=== PATIENT | female | born 1930 | race Caucasian/White ===

== ENCOUNTER 2016-05-05 20:57 | Inpatient (IN) | payer MEDICARE, BC ==
--- NOTE | 2016-05-05 21:38 | ED ---
Weakness HPI - General Chief complaint: Weakness Stated complaint: Blood in stool weakness Time Seen by Provider: 05/05/16 21:20 Source: patient, family, RN notes reviewed Mode of arrival: wheelchair Limitations: no limitations - History of Present Illness Initial comments: This is a 85-year-old female history of diverticulitis in the past no prior abdominal surgeries however who states she's had abdominal pain in the lower abdomen especially in the left side with some blood per rectum today. She states the pain is [id number] she's had diarrhea for about a week prior to this. She complains of generalized weakness some lightheadedness. No overt fevers chills or sweats. She states she does have a bladder suspension device at this time. She gets adjusted periodically. She denies any dysuria hematuria. No other symptoms reported at this time. No history of GI bleeding. MD Complaint: generalized weakness - Related Data Home Medications Medication Instructions Recorded Confirmed Aspirin 81 mg PO DAILY 06/07/14 05/05/16 Diltiazem HCl [Diltiazem ER] 240 mg PO DAILY 06/07/14 05/05/16 Allergies Allergy/AdvReac Type Severity Reaction Status Date / Time No Known Allergies Allergy Verified 05/05/16 21:03 Review of Systems ROS Statement: Those systems with pertinent positive or pertinent negative responses have been documented in the HPI. ROS Other: All systems not noted in ROS Statement are negative. Past Medical History Past Medical History: Hypertension Additional Past Medical History / Comment(s): diverticulitis History of Any Multi-Drug Resistant Organisms: None Reported Past Surgical History: Bladder Surgery, Tubal Ligation Additional Past Surgical History / Comment(s): rt cataract 06/08/14 Past Anesthesia/Blood Transfusion Reactions: No Reported Reaction Past Psychological History: No Psychological Hx Reported Smoking Status: Former smoker Past Alcohol Use History: None Reported Past Drug Use History: None Reported - Past Family History Sister(s) Family Medical History: Cancer General Exam - General Exam Comments Initial Comments: This is a well-developed well-nourished awake alert oriented 3 female Limitations: no limitations General appearance: alert, anxious Head exam: Present: atraumatic, normocephalic, normal inspection Eye exam: Present: normal appearance, PERRL, EOMI. Absent: scleral icterus, conjunctival injection, periorbital swelling ENT exam: Present: mucous membranes dry Neck exam: Present: normal inspection. Absent: tenderness, meningismus, lymphadenopathy Respiratory exam: Present: normal lung sounds bilaterally. Absent: respiratory distress, wheezes, rales, rhonchi, stridor Cardiovascular Exam: Present: regular rate, normal rhythm, normal heart sounds. Absent: systolic murmur, diastolic murmur, rubs, gallop, clicks GI/Abdominal exam: Present: soft, tenderness (Left lower quadrant tenderness palpation no guarding rebound masses or bruits), normal bowel sounds. Absent: distended, guarding, rebound, rigid Rectal exam: Present: heme (+) stool, other (No overt masses or tenderness there was pink mucus noted on the gloved fingertip.). Absent: hemorrhoids Extremities exam: Present: normal inspection, full ROM, normal capillary refill. Absent: tenderness, pedal edema, joint swelling, calf tenderness Back exam: Present: normal inspection Neurological exam: Present: alert, oriented X3, CN II-XII intact Psychiatric exam: Present: normal affect, normal mood Skin exam: Present: warm, dry, intact, normal color. Absent: rash Course Vital Signs 05/05/16 05/05/16 20:58 23:02 Temperature 98.2 F Pulse Rate 80 78 Respiratory 18 20 Rate Blood Pressure 143/63 136/60 O2 Sat by Pulse 94 L 97 Oximetry Medical Decision Making - Medical Decision Making I did discuss findings with patient family patient be admitted with GI consultation. - Lab Data Result diagrams: 05/05/16 21:25 05/05/16 21:25 Lab Results 05/05/16 05/05/16 05/05/16 Range/Units 21:25 21:25 21:25 WBC 8.0 (3.8-10.6) k/uL RBC 4.63 (3.80-5.40) m/uL Hgb 12.5 (11.4-16.0) gm/dL Hct 38.8 (34.0-46.0) % MCV 83.8 (80.0-100.0) fL MCH 27.0 (25.0-35.0) pg MCHC 32.2 (31.0-37.0) g/dL RDW 13.4 (11.5-15.5) % Plt Count 421 (150-450) k/uL Neutrophils % 74 % Lymphocytes % 15 % Monocytes % 7 % Eosinophils % 2 % Basophils % 0 % Neutrophils # 5.9 (1.3-7.7) k/uL Lymphocytes # 1.2 (1.0-4.8) k/uL Monocytes # 0.6 (0-1.0) k/uL Eosinophils # 0.2 (0-0.7) k/uL Basophils # 0.0 (0-0.2) k/uL Sodium 141 (137-145) mmol/L Potassium 4.2 (3.5-5.1) mmol/L Chloride 103 (98-107) mmol/L Carbon Dioxide 28 (22-30) mmol/L Anion Gap 10 mmol/L BUN 18 H (7-17) mg/dL Creatinine 0.50 L (0.52-1.04) mg/dL Est GFR (MDRD) Af Amer >60 (>60 ml/min/1.73 sqM) Est GFR (MDRD) Non-Af >60 (>60 ml/min/1.73 sqM) Glucose 109 H (74-99) mg/dL Plasma Lactic Acid Lobo (0.7-2.0) mmol/L Calcium 8.7 (8.4-10.2) mg/dL Total Bilirubin 0.3 (0.2-1.3) mg/dL AST 13 L (14-36) U/L ALT 24 (9-52) U/L Alkaline Phosphatase 109 (38-126) U/L Total Creatine Kinase 21 L (30-135) U/L CK-MB (CK-2) <0.2 (0.0-2.4) ng/mL CK-MB (CK-2) Rel Index Troponin I <0.012 (0.000-0.034) ng/mL Total Protein 6.7 (6.3-8.2) g/dL Albumin 3.2 L (3.5-5.0) g/dL Amylase <30 L (30-110) U/L Lipase 73 (23-300) U/L Urine Color Urine Appearance (Clear) Urine pH (5.0-8.0) Ur Specific Curtis (1.001-1.035) Urine Protein (Negative) Urine Glucose (UA) (Negative) Urine Ketones (Negative) Urine Blood (Negative) Urine Nitrate (Negative) Urine Bilirubin (Negative) Urine Urobilinogen (<2.0) mg/dL Ur Leukocyte Esterase (Negative) Urine RBC (0-5) /hpf Urine WBC (0-5) /hpf Urine WBC Clumps (None) /hpf Ur Squamous Epith Cells (0-4) /hpf Urine Bacteria (None) /hpf Urine Yeast (Budding) (None) /hpf Stool Occult Blood (Negative) Blood Type Blood Type Recheck Antibody Screen Spec Expiration Date 05/05/16 05/05/16 05/05/16 Range/Units 21:25 21:25 21:45 WBC (3.8-10.6) k/uL RBC (3.80-5.40) m/uL Hgb (11.4-16.0) gm/dL Hct (34.0-46.0) % MCV (80.0-100.0) fL MCH (25.0-35.0) pg MCHC (31.0-37.0) g/dL RDW (11.5-15.5) % Plt Count (150-450) k/uL Neutrophils % % Lymphocytes % % Monocytes % % Eosinophils % % Basophils % % Neutrophils # (1.3-7.7) k/uL Lymphocytes # (1.0-4.8) k/uL Monocytes # (0-1.0) k/uL Eosinophils # (0-0.7) k/uL Basophils # (0-0.2) k/uL Sodium (137-145) mmol/L Potassium (3.5-5.1) mmol/L Chloride (98-107) mmol/L Carbon Dioxide (22-30) mmol/L Anion Gap mmol/L BUN (7-17) mg/dL Creatinine (0.52-1.04) mg/dL Est GFR (MDRD) Af Amer (>60 ml/min/1.73 sqM) Est GFR (MDRD) Non-Af (>60 ml/min/1.73 sqM) Glucose (74-99) mg/dL Plasma Lactic Acid Lobo 1.2 (0.7-2.0) mmol/L Calcium (8.4-10.2) mg/dL Total Bilirubin (0.2-1.3) mg/dL AST (14-36) U/L ALT (9-52) U/L Alkaline Phosphatase (38-126) U/L Total Creatine Kinase (30-135) U/L CK-MB (CK-2) (0.0-2.4) ng/mL CK-MB (CK-2) Rel Index Troponin I (0.000-0.034) ng/mL Total Protein (6.3-8.2) g/dL Albumin (3.5-5.0) g/dL Amylase (30-110) U/L Lipase (23-300) U/L Urine Color Urine Appearance (Clear) Urine pH (5.0-8.0) Ur Specific Curtis (1.001-1.035) Urine Protein (Negative) Urine Glucose (UA) (Negative) Urine Ketones (Negative) Urine Blood (Negative) Urine Nitrate (Negative) Urine Bilirubin (Negative) Urine Urobilinogen (<2.0) mg/dL Ur Leukocyte Esterase (Negative) Urine RBC (0-5) /hpf Urine WBC (0-5) /hpf Urine WBC Clumps (None) /hpf Ur Squamous Epith Cells (0-4) /hpf Urine Bacteria (None) /hpf Urine Yeast (Budding) (None) /hpf Stool Occult Blood Positive H (Negative) Blood Type O Positive Blood Type Recheck No Antibody Screen NEGATIVE Spec Expiration Date 05/08/2016 - 232405/05/16 Range/Units 23:03 WBC (3.8-10.6) k/uL RBC (3.80-5.40) m/uL Hgb (11.4-16.0) gm/dL Hct (34.0-46.0) % MCV (80.0-100.0) fL MCH (25.0-35.0) pg MCHC (31.0-37.0) g/dL RDW (11.5-15.5) % Plt Count (150-450) k/uL Neutrophils % % Lymphocytes % % Monocytes % % Eosinophils % % Basophils % % Neutrophils # (1.3-7.7) k/uL Lymphocytes # (1.0-4.8) k/uL Monocytes # (0-1.0) k/uL Eosinophils # (0-0.7) k/uL Basophils # (0-0.2) k/uL Sodium (137-145) mmol/L Potassium (3.5-5.1) mmol/L Chloride (98-107) mmol/L Carbon Dioxide (22-30) mmol/L Anion Gap mmol/L BUN (7-17) mg/dL Creatinine (0.52-1.04) mg/dL Est GFR (MDRD) Af Amer (>60 ml/min/1.73 sqM) Est GFR (MDRD) Non-Af (>60 ml/min/1.73 sqM) Glucose (74-99) mg/dL Plasma Lactic Acid Lobo (0.7-2.0) mmol/L Calcium (8.4-10.2) mg/dL Total Bilirubin (0.2-1.3) mg/dL AST (14-36) U/L ALT (9-52) U/L Alkaline Phosphatase (38-126) U/L Total Creatine Kinase (30-135) U/L CK-MB (CK-2) (0.0-2.4) ng/mL CK-MB (CK-2) Rel Index Troponin I (0.000-0.034) ng/mL Total Protein (6.3-8.2) g/dL Albumin (3.5-5.0) g/dL Amylase (30-110) U/L Lipase (23-300) U/L Urine Color Light Yellow Urine Appearance Cloudy H (Clear) Urine pH 7.0 (5.0-8.0) Ur Specific Curtis 1.019 (1.001-1.035) Urine Protein 1+ H (Negative) Urine Glucose (UA) Negative (Negative) Urine Ketones Negative (Negative) Urine Blood Small H (Negative) Urine Nitrate Negative (Negative) Urine Bilirubin Negative (Negative) Urine Urobilinogen <2.0 (<2.0) mg/dL Ur Leukocyte Esterase Large H (Negative) Urine RBC 15 H (0-5) /hpf Urine WBC >182 H (0-5) /hpf Urine WBC Clumps Few H (None) /hpf Ur Squamous Epith Cells 4 (0-4) /hpf Urine Bacteria Occasional H (None) /hpf Urine Yeast (Budding) Moderate H (None) /hpf Stool Occult Blood (Negative) Blood Type Blood Type Recheck Antibody Screen Spec Expiration Date - Radiology Data Radiology results: report reviewed (I did review the imaging and reports no acute findings on the x-ray CAT scan shows evidence of colitis.), image reviewed Disposition Clinical Impression: Colitis, GI bleed, Abdominal pain Disposition: ADMITTED IP TO THIS HOSP Condition: Stable
[2016-05-05 22:01] LABS: ALT 24 U/L (9-52); AST 13 U/L (14-36); Alkaline Phosphatase 109 U/L (38-126); Amylase <30 U/L (30-110); Anion Gap 10 mmol/L; Blood Urea Nitrogen 18 mg/dL (7-17); Calcium 8.7 mg/dL (8.4-10.2); Carbon Dioxide 28 mmol/L (22-30); Chloride 103 mmol/L (98-107); Glucose 109 mg/dL (74-99); Non-African American GFR(MDRD) >60 (>60 ml/min/1.73 sqM); Potassium 4.2 mmol/L (3.5-5.1); Sodium 141 mmol/L (137-145); Total Bilirubin 0.3 mg/dL (0.2-1.3); Total Protein 6.7 g/dL (6.3-8.2)
--- NOTE | 2016-05-05 22:04 | XR ---
EXAMINATION TYPE: XR KUB DATE OF EXAM: 05/05/2016 9:51 PM COMPARISON: NONE HISTORY: Abdominal pain TECHNIQUE: Single view FINDINGS: Bowel gas pattern is normal. There is no sign of intestinal obstruction or pneumoperitoneum . Fecal pattern is normal. There is a ring over the pelvis that is probably a pessary. There are no p athologic calcifications over the kidneys. Bony structures are intact. IMPRESSION: Nonacute abdomen.
[2016-05-05 22:10] LABS: Creatine Kinase 21 U/L (30-135)
[2016-05-05 22:23] LABS: Creatine Kinase MB <0.2 ng/mL (0.0-2.4); Troponin I <0.012 ng/mL (0.000-0.034)
[2016-05-05 22:27] LABS: Basophils % (A) 0 %; CH 26.9; CHCM 32.2; Eosinophils # (A) 0.2 k/uL (0-0.7); Eosinophils % (A) 2 %; HCT 38.8 % (34.0-46.0); HDW 2.71; HGB 12.5 gm/dL (11.4-16.0); Luc # (Auto) 0.14; Luc % (Auto) 2; Lymphocytes # (A) 1.2 k/uL (1.0-4.8); Lymphocytes % (A) 15 %; MCHC 32.2 g/dL (31.0-37.0); MCV 83.8 fL (80.0-100.0); Mean Platelet Volume 6.6; Monocytes # (A) 0.6 k/uL (0-1.0); Monocytes % (A) 7 %; Neutrophils # (A) 5.9 k/uL (1.3-7.7); Neutrophils % (A) 74 %; RBC 4.63 m/uL (3.80-5.40); RDW 13.4 % (11.5-15.5); WBC (Perox) 8.54
[2016-05-05] MEDS ORDERED: RX INFO: IV CONTRAST WAS GIVEN 1 EACH MISC MISCELLANE PRN (22:33)
--- NOTE | 2016-05-05 23:30 | CT ---
EXAMINATION TYPE: CT abdomen pelvis w con DATE OF EXAM: 05/05/2016 11:04 PM COMPARISON: NONE HISTORY: GI Bleed; pain CT DLP: 684 mGycm Automated exposure control for dose reduction was used. CONTRAST: Performed without Oral Contrast and with IV Contrast, patient injected with 100 mL of Omnipaque 300. FINDINGS: Lung bases are clear. There is no pleural effusion. Heart size is normal. Spleen is top normal in size. There is no evidence of a pancreatic mass. Bile ducts are not dilated. I see no focal liver defect. Gallbladder appears normal. There is a 2 cm splenic cyst. Appendix is no t seen. There is no sign of appendicitis. There is normal contrast opacification of the kidneys. There is no hydronephrosis. There is no retrop eritoneal adenopathy. Abdominal aorta is atheromatous. There is no adrenal mass. There is a large devang unt of fecal material in the right colon. There is diffuse thickening of the wall of the lower descen ding colon, rectosigmoid colon. There is a pessary at the floor of the pelvis. Bladder distends tish hly. There are some tortuous vessels in the pelvis consistent with varices. I see no bony destructive process. There is facet arthropathy in the lower lumbar spine with mild spinal stenosis at L4-5. IMPRESSION: CONSTIPATION. DIFFUSE THICKENING OF THE WALL OF THE RECTOSIGMOID COLON AND ALSO THE LOWER DESCENDING COLON CONSISTE NT WITH NONSPECIFIC COLITIS. NO EVIDENCE OF AN ABSCESS. Pelvic varices.
[2016-05-05 23:49] LABS: Appearance,Urine Cloudy (Clear); Bacteria,Urine Occasional /hpf; Bilirubin,Urine Negative (Negative); Glucose,Urine (UA) Negative (Negative); Ketones,Urine Negative (Negative); Leukocyte Esterase,Urine Large (Negative); Nitrite,Urine Negative (Negative); Particle Count 2200; Protein,Urine 1+ (Negative); RBC,Urine 15 /hpf (0-5); Specific Gravity,Urine 1.019 (1.001-1.035); Squamous Epithelial Cell,Urine 4 /hpf (0-4); UA Billing (MACRO vs. MICRO) MICRO; Urobilinogen,Urine <2.0 mg/dL (<2.0); WBC,Urine >182 /hpf (0-5)
[2016-05-06] MEDS ORDERED: HYDROmorphone 1 MG/ML 1 ML SYRINGE IVP STA (00:02)
[2016-05-06] MEDS ORDERED: ONDANSETRON 4 MG/2 ML VIAL IVP PRN (00:40)
[2016-05-06] MEDS ORDERED: NALOXONE 0.4 MG/ML 1 ML VIAL IV PRN (00:40)
[2016-05-06] MEDS: SODIUM CHLORIDE 0.9% 1,000 ML IV SCH ×3 (03:04→15:57)
[2016-05-06] MEDS: HYDROmorphone 1 MG/ML 1 ML SYRINGE IV PRN ×2 (04:19→20:13)
[2016-05-06 04:49] LABS: Basophils % (A) 0 %; CH 26.8; CHCM 31.6; Eosinophils # (A) 0.2 k/uL (0-0.7); Eosinophils % (A) 2 %; HCT 37.2 % (34.0-46.0); HDW 2.67; HGB 11.6 gm/dL (11.4-16.0); Hypochromasia Slight; Luc # (Auto) 0.17; Luc % (Auto) 2; Lymphocytes # (A) 1.1 k/uL (1.0-4.8); Lymphocytes % (A) 16 %; MCH 26.4 pg (25.0-35.0); MCHC 31.1 g/dL (31.0-37.0); Monocytes # (A) 0.5 k/uL (0-1.0); Monocytes % (A) 7 %; Neutrophils % (A) 73 %; RBC 4.38 m/uL (3.80-5.40); RDW 13.3 % (11.5-15.5); WBC 6.9 k/uL (3.8-10.6); WBC (Perox) 7.53
[2016-05-06] MEDS: PANTOPRAZOLE 40 MG/10 ML VIAL IV SCH ×2 (10:23→21:25)
[2016-05-06] MEDS ORDERED: traMADol-ACETAMINOP 37.5-325MG 1 EACH TAB PO PRN (11:37)
[2016-05-06] MEDS ORDERED: ALPRAZolam 0.25 MG TAB PO PRN (11:38)
[2016-05-06] MEDS: DILTIAZEM CD 240 MG CAP.ER.24H PO SCH (13:19)
[2016-05-06] MEDS: LEVOFLOXACIN 500MG-D5W PMX 500 MG in DEXTROSE/WATER 1 100ML.BAG IVPB SCH (14:43)
[2016-05-06] MEDS: metroNIDAZOLE-NS PMX 500 MG in SALINE 1 100ML.BAG IVPB SCH ×2 (15:56→23:47)
--- NOTE | 2016-05-06 16:43 | CONS ---
DATE OF CONSULTATION: REASON FOR CONSULTATION: Diarrhea, abdominal pain and rectal bleeding. HISTORY OF PRESENT ILLNESS: The patient is an 85-year-old pleasant lady who came into the emergency room complaining of lower abdominal pain associated with diarrhea and rectal bleeding for the last one week duration. The patient states that it first started off with lower abdominal discomfort and started having diarrhea with bowel movements anywhere from 10 to 15 a day which are loose to watery in consistency. However, yesterday she started noticing some streaks of blood in the stool and she had 3 episodes of bloody stools, became very concerned, came into the emergency room and subsequently was admitted to the hospital for further evaluation. The patient denies any recent antibiotic use. Denies any recent travel history. She reports no nausea or vomiting. She denies any prior history of inflammatory bowel disease. She states that approximately a year ago she had chronic diarrhea and she underwent colonoscopy done at [facility] and according to her it was within normal limits. She was subsequently given some antimotility agents which she took for a month and her symptoms resolved. Her past medical history is significant for hypertension. MEDICATIONS AT HOME: Cardizem and aspirin. ALLERGIES: None. PAST SURGICAL HISTORY: Significant for ( ) surgery and right cataract surgery. SOCIAL HISTORY: No smoking or alcohol use. FAMILY HISTORY: Unremarkable. FAMILY HISTORY: Sister has some kind of cancer. REVIEW OF SYSTEMS: CARDIOPULMONARY: No chest pain or shortness of breath. : No dysuria or hematuria. MUSCULOSKELETAL: Unremarkable. SKIN: Unremarkable. ENDOCRINE: Unremarkable. PSYCHIATRIC: Unremarkable. NEUROLOGY: Unremarkable. ENT: Vision unremarkable. CONSTITUTIONAL: No recent weight loss. PHYSICAL EXAMINATION: Blood pressure 143/60 pulse 80, temperature 98.2. HEENT examination is unremarkable. Conjunctivae pink. Sclerae anicteric. Oral cavity, no lesions. NECK: No JVD aspirin, I suggested to auscultation. HEART: Regular rate and rhythm. ABDOMEN: Soft. There was mild tenderness in the left lower quadrant area. EXTREMITIES: No pedal edema. SKIN: No rashes. NEURO: Alert and oriented x3. No focal deficits. LABS: WBC 8, hemoglobin 12.5, platelets are normal. Basic metabolic panel is within normal limits. Stool occult blood was positive IMPRESSION: This is a lady who presents with lower abdominal pain followed by diarrhea for the last one week duration. She has been having bowel movements anywhere from 10 to 15 a day which are loose to watery in consistency and yesterday started noticing blood in the stool. Most likely we are dealing with infectious etiology. She did mention that she had a colonoscopy done at [facility] a year ago which was within normal limits. CT of the abdomen did show evidence of thickening of the colon, mostly left side involving the descending colon and rectosigmoid colon consistent with acute colitis. RECOMMENDATIONS: 1. We will obtain stool studies for C. difficile toxin, ova parasites and cultures. 2. Start on clear liquid diet. 3. Based on the results, further investigations will be planned. Thank you for this consultation.
--- NOTE | 2016-05-06 20:07 | HP ---
DATE OF ADMISSION: 05/06/2016 CHIEF COMPLAINT: Blood in the stools, weakness and abdominal pain. HISTORY OF PRESENT ILLNESS: This 85-year-old woman with a past medical history of multiple medical problems, history of hypertension, diverticulitis being followed by Dr. Glez in the outpatient setting, complaining of diffuse abdominal pain. The patient had no prior abdominal surgeries. The pain was mostly in the lower part and also the left side. The patient some blood in the stools. The pain is mild to moderate in intensity. The patient came to [facility] Emergency Room Department and admitted to the hospital for further evaluation and treatment. The patient underwent abdomen and pelvis CT scan. The abdominal and pelvis CT scan showed diffuse thickening of the wall of the rectosigmoid colon and as well as lower descending colon consistent with a nonspecific colitis. The patient admitted to the hospital for further evaluation and treatment. There is no history of fever, rigors or chills. No history of headache, loss of consciousness or seizures. Past medical history: History of hypertension. History of diverticulitis. History of tubal ligation. History of nicotine dependence. Medications prior to admission: 1. Ultracet 1 tablet p.o. t.i.d. p.r.n. 2. Diltiazem 240 mg daily. 3. Aspirin 81 mg daily. 4. Vitamin C 500 mg daily. ALLERGIES: None. FAMILY HISTORY: History of cancer in the family. SOCIAL HISTORY: Previous history of smoking. No history of current smoking. No alcohol intake. REVIEW OF SYSTEMS: ENT: Diminished hearing, diminished vision. CARDIOVASCULAR: No angina or palpitations. RESPIRATORY: As mentioned earlier. GI: No nausea. : No dysuria. CENTRAL NERVOUS SYSTEM: No numbness, weakness. ALLERGY/IMMUNOLOGY: No asthma or hayfever. MUSCULOSKELETAL: As mentioned earlier. HEMATOLOGY/ONCOLOGY: No history of anemia. ENDOCRINE: No history of diabetes or hypothyroidism. CONSTITUTIONAL: As mentioned earlier. DERMATOLOGY: Negative. RHEUMATOLOGY: Negative. PSYCHIATRY: As mentioned earlier. PHYSICAL EXAMINATION: Alert and oriented times three. Pulse 75, blood pressure 112/43, respiratory rate 18, temperature 98.4. Pulse ox 94% on room air. HEENT: Conjunctivae normal. NECK: No jugular venous distention. CARDIOVASCULAR: S1, S2 muffled. RESPIRATORY: Breath sounds diminished at the bases. No rhonchi. No crackles. ABDOMEN: Soft, mild diffuse tenderness in the lower part and left lower quadrant present. No guarding. No rebound tenderness. No rigidity. Bowel sounds present. No ascites. Legs: No edema. No swelling. CENTRAL NERVOUS SYSTEM: Higher functions as mentioned earlier. Moves all four limbs. No focal deficits. LYMPHATICS: No lymph nodes palpable in the neck, axillae or groin. SKIN: No ulcer, rash or bleeding. LABS: CBC within normal limits. Otherwise, creatinine 0.5, glucose 109. UA shows evidence of UTI. CAT scan showed diffuse thickening of the wall of the rectus ASSESSMENT: 1. Abdominal pain, possibly rectosigmoid colitis. 2. Acute urinary tract infection. 3. History of hypertension. 4. History of diverticulitis. 5. History of tubal ligation. 6. History of cataracts. 7. Remote history of nicotine dependence. 8. FULL CODE. 9. Mild to moderate protein calorie malnutrition. BMI 18.7. RECOMMENDATIONS AND DISCUSSION: In this 85-year-old woman who presented with multiple complex medical issues, we will monitor the patient closely. Continue the current medications. Continue symptomatic treatment. Otherwise, at this time, I recommend broad-spectrum IV antibiotics. Recommend Levaquin and Flagyl. Cultures, urine culture. Otherwise, blood culture. Gastroenterology will be consulted. Guarded prognosis because of multiple complex medical issues. DVT prophylaxis. The rest of the home medications will be resumed. A copy of dictation being forwarded to Dr. Glez who is the primary physician. DEAN
[2016-05-06] MEDS ORDERED: TEMAZEPAM 15 MG CAP PO PRN (21:00)
[2016-05-06 21:03] LABS: Basophils % (A) 0 %; CH 26.6; CHCM 31.3; Eosinophils # (A) 0.1 k/uL (0-0.7); Eosinophils % (A) 1 %; HCT 35.1 % (34.0-46.0); HDW 2.66; HGB 11.1 gm/dL (11.4-16.0); Hypochromasia Slight; Luc # (Auto) 0.15; Luc % (Auto) 2; Lymphocytes # (A) 0.9 k/uL (1.0-4.8); Lymphocytes % (A) 13 %; MCH 26.9 pg (25.0-35.0); MCHC 31.5 g/dL (31.0-37.0); MCV 85.5 fL (80.0-100.0); Mean Platelet Volume 6.4; Monocytes # (A) 0.5 k/uL (0-1.0); Monocytes % (A) 7 %; Neutrophils # (A) 5.5 k/uL (1.3-7.7); Neutrophils % (A) 77 %; RBC 4.11 m/uL (3.80-5.40); RDW 13.2 % (11.5-15.5); WBC 7.2 k/uL (3.8-10.6); WBC (Perox) 7.85
[2016-05-07] MEDS: SODIUM CHLORIDE 0.9% 1,000 ML IV SCH ×3 (00:47→15:14)
[2016-05-07 02:53] LABS: Basophils % (A) 0 %; CH 27.6; CHCM 31.9; Eosinophils # (A) 0.2 k/uL (0-0.7); Eosinophils % (A) 3 %; HDW 2.67; HGB 10.4 gm/dL (11.4-16.0); Luc # (Auto) 0.13; Luc % (Auto) 2; Lymphocytes % (A) 16 %; MCH 26.6 pg (25.0-35.0); MCHC 30.6 g/dL (31.0-37.0); MCV 86.9 fL (80.0-100.0); Monocytes # (A) 0.4 k/uL (0-1.0); Monocytes % (A) 7 %; Neutrophils # (A) 4.3 k/uL (1.3-7.7); Neutrophils % (A) 72 %; RBC 3.91 m/uL (3.80-5.40); RDW 13.7 % (11.5-15.5); WBC (Perox) 6.15
[2016-05-07 03:06] LABS: Anion Gap 8 mmol/L; Blood Urea Nitrogen 12 mg/dL (7-17); Calcium 7.4 mg/dL (8.4-10.2); Carbon Dioxide 27 mmol/L (22-30); Chloride 105 mmol/L (98-107); Glucose 91 mg/dL (74-99); Non-African American GFR(MDRD) >60 (>60 ml/min/1.73 sqM); Potassium 3.4 mmol/L (3.5-5.1); Sodium 140 mmol/L (137-145)
[2016-05-07] MEDS: metroNIDAZOLE-NS PMX 500 MG in SALINE 1 100ML.BAG IVPB SCH ×3 (08:15→23:17)
[2016-05-07] MEDS: PANTOPRAZOLE 40 MG/10 ML VIAL IV SCH ×2 (08:15→20:37)
[2016-05-07] MEDS: DILTIAZEM CD 240 MG CAP.ER.24H PO SCH (08:15)
[2016-05-07 08:34] LABS: Basophils % (A) 0 %; CH 26.7; CHCM 31.5; Eosinophils # (A) 0.2 k/uL (0-0.7); Eosinophils % (A) 2 %; HCT 35.9 % (34.0-46.0); HDW 2.69; HGB 11.3 gm/dL (11.4-16.0); Hypochromasia Slight; Luc # (Auto) 0.12; Luc % (Auto) 2; Lymphocytes % (A) 16 %; MCH 26.9 pg (25.0-35.0); MCHC 31.6 g/dL (31.0-37.0); MCV 85.2 fL (80.0-100.0); Monocytes # (A) 0.4 k/uL (0-1.0); Monocytes % (A) 7 %; Neutrophils # (A) 4.4 k/uL (1.3-7.7); Neutrophils % (A) 73 %; RBC 4.22 m/uL (3.80-5.40); RDW 13.2 % (11.5-15.5); WBC 6.1 k/uL (3.8-10.6); WBC (Perox) 6.26
[2016-05-07] MEDS ORDERED: Potassium Replacement Protocol 1 EACH MISC MISCELLANE PRN (09:38)
[2016-05-07] MEDS: POTASSIUM CHLORIDE ER 20 MEQ TAB.ER PO SCH ×2 (11:00→12:01)
[2016-05-07 11:45] VITALS: BMI 18.6
[2016-05-07] MEDS: LEVOFLOXACIN 500MG-D5W PMX 500 MG in DEXTROSE/WATER 1 100ML.BAG IVPB SCH (12:01)
[2016-05-07 12:26] LABS: Anion Gap 7 mmol/L; Blood Urea Nitrogen 10 mg/dL (7-17); Calcium 7.7 mg/dL (8.4-10.2); Carbon Dioxide 29 mmol/L (22-30); Chloride 106 mmol/L (98-107); Glucose 87 mg/dL (74-99); Non-African American GFR(MDRD) >60 (>60 ml/min/1.73 sqM); Potassium 3.8 mmol/L (3.5-5.1); Sodium 142 mmol/L (137-145)
[2016-05-07] MEDS: HYDROmorphone 1 MG/ML 1 ML SYRINGE IV PRN ×2 (15:13→23:21)
--- NOTE | 2016-05-07 19:38 | PN ---
DATE OF SERVICE: 05/07/2016 Patient is an 85-year-old pleasant lady admitted to the hospital with severe diarrhea for the last one week duration. She was having bowel movements anywhere from 10 to 15 a day, which were loose to watery in consistency with small amount of blood in the stool that happened for 2 days. She was admitted to the hospital and had a CT of the abdomen that showed some colitis involving the left colon. The patient was started on broad-spectrum antibiotics in the emergency room. Today she is feeling better. She had only 2 bowel movement this morning, still loose in consistency but no blood. Abdominal pain is improving. She is on clear liquid diet, tolerating well. On physical examination, temperature 97.4, blood pressure 99/53, pulse rate 77. HEENT examination unremarkable. Conjunctivae pink. Sclerae anicteric. Oral cavity, no lesions. NECK: No JVD or lymph node enlargement. Chest was clear to auscultation. Heart was regular rate and rhythm. Abdomen was soft. It was nontender, nondistended. Liver and spleen not palpable. Bowel sounds are positive. No organomegaly. EXTREMITIES: No pedal edema. SKIN: No rashes. NEURO: Alert and oriented x3. No focal deficits. Labs from today: WBC 6, hemoglobin 10.4, platelets normal. Basic metabolic panel is within normal limits. C. difficile toxin is negative. IMPRESSION: Acute onset of diarrhea with some rectal bleeding for the last one week duration. CT scan showing left-sided colitis most likely we are dealing with infectious etiology. Patient on broad-spectrum antibiotics with Levaquin and Flagyl and her symptoms are improving. So for Clostridium difficile toxin is negative, but cultures are still pending. RECOMMENDATIONS: 1. Continue with broad-spectrum antibiotics. 2. Advance diet as tolerated. 3. If her symptoms improve she can be discharged from tomorrow with outpatient follow up in 2 weeks.
[2016-05-07] MEDS ORDERED: POTASSIUM CHLORIDE ER 20 MEQ TAB.ER PO SCH (20:00)
--- NOTE | 2016-05-07 20:02 | P.PN ---
Subjective Date of service 05/07/2016. Progress note being dictated for Dr. Tracey Interval history: This is an 85-year-old female admitted with abdominal pain, possible rectosigmoid colitis, acute UTI and multiple other medical issues. Maintained on broad-spectrum IV antibiotics, improving. Hemoglobin up to 11.3. No further blood in stools reported. 3 loose mucousy stools today.complains of mild diffuse bilateral lower quadrant discomfort. Evaluated by GI with recommendations noted. Denies chest pain, palpitations or increasing shortness of breath. Denies lightheadedness dizziness or any focal deficits. Objective - Vital Signs Vital signs: Vital Signs Temp 98.3 F 05/07/16 07:00 Pulse 67 05/07/16 07:00 Resp 20 05/07/16 07:00 BP 133/62 05/07/16 07:00 Pulse Ox 95 05/07/16 07:00 Intake & Output 05/06/16 05/07/16 05/07/16 18:59 06:59 18:59 Intake Total 1999 Balance 1999 Weight 43.318 kg Intake: IV 2000 Sodium Chloride 0.9% , 1999 000 ml @ 125 mls/hr IV . Q8H [facility] Rx#:[id number] Other: # Voids 4 1 # Bowel Movements 3 1 - Exam PHYSICAL EXAM: VITAL SIGNS: As above GENERAL: [Sitting up in bed, no acute distress] HEENT: [conjunctiva normal.] NECK: [Supple, no JVD] RESPIRATORY EFFORT:[Normal] LUNGS: [Bilateral bases diminished, no crackles, no wheezing, no rhonchi] CARDIOVASCULAR[regular S1 and S2, no edema] GI: [Abdomen soft, mild diffuse tenderness in bilateral lower quadrants, no guarding, no rigidity, positive bowel sounds.] PSYCH: [Alert and oriented -3, mood and affect normal.] NEURO: No focal deficits, moves all 4 extremities, strength and sensation grossly intact - Labs CBC & Chem 7: 05/07/16 08:01 05/07/16 08:01 Labs: Abnormal Lab Results - Last 24 Hours (Table) 05/06/16 05/07/16 05/07/16 Range/Units 20:54 02:40 02:40 Hgb 11.1 L 10.4 L (11.4-16.0) gm/dL MCHC 30.6 L (31.0-37.0) g/dL Lymphocytes # 0.9 L (1.0-4.8) k/uL Potassium 3.4 L (3.5-5.1) mmol/L Creatinine 0.50 L (0.52-1.04) mg/dL Calcium 7.4 L (8.4-10.2) mg/dL 05/07/16 Range/Units 08:01 Hgb 11.3 L (11.4-16.0) gm/dL MCHC (31.0-37.0) g/dL Lymphocytes # (1.0-4.8) k/uL Potassium (3.5-5.1) mmol/L Creatinine (0.52-1.04) mg/dL Calcium (8.4-10.2) mg/dL Microbiology - Last 24 Hours (Table) 05/06/16 14:13 Stool for WBCs - Final Stool 05/06/16 14:13 Urine Culture - Preliminary Urine,Clean Catch 05/06/16 14:13 Stool Culture - Preliminary Stool Assessment and Plan Plan: 1. Abdominal pain possibly rectosigmoid colitis, possibly infectious. 2. [Acute UTI]. 3. [Hypertension]. 4. [Diverticulitis, history of]. 5. [Remote history of nicotine dependence]. 6. [History of cataracts]. 7. [Mild to moderate protein calorie malnutrition, BMI 18.7]. Plan: Continue on current medication regime, PPI, antibiotics, monitoring and symptomatic treatment. Continue on Flagyl and Levaquin. Diet advanced as tolerated per GI. Increase ambulation as tolerated. discharge planning in progress for tomorrow pending GI clearance. Further recommendations to follow. The impression and plan of care has been dictated as directed. : I performed a H&P examination of this patient and discussed the same with the dictator. I agree with the dictator's note. Any additional findings/opinions/ etc. will be noted.
[2016-05-08] MEDS: SODIUM CHLORIDE 0.9% 1,000 ML IV SCH ×3 (04:19→15:15)
[2016-05-08] MEDS: metroNIDAZOLE-NS PMX 500 MG in SALINE 1 100ML.BAG IVPB SCH ×2 (07:33→15:15)
[2016-05-08] MEDS: DILTIAZEM CD 240 MG CAP.ER.24H PO SCH (07:59)
[2016-05-08] MEDS: PANTOPRAZOLE 40 MG/10 ML VIAL IV SCH ×2 (08:01→20:52)
[2016-05-08 09:27] LABS: Basophils % (A) 1 %; CH 27.1; CHCM 31.5; Eosinophils # (A) 0.2 k/uL (0-0.7); Eosinophils % (A) 3 %; HCT 34.3 % (34.0-46.0); HDW 2.77; HGB 10.7 gm/dL (11.4-16.0); Hypochromasia Slight; Luc # (Auto) 0.08; Luc % (Auto) 2; Lymphocytes # (A) 0.6 k/uL (1.0-4.8); Lymphocytes % (A) 12 %; MCH 26.8 pg (25.0-35.0); MCHC 31.1 g/dL (31.0-37.0); MCV 86.2 fL (80.0-100.0); Mean Platelet Volume 7.6; Monocytes # (A) 0.3 k/uL (0-1.0); Monocytes % (A) 6 %; Neutrophils # (A) 3.5 k/uL (1.3-7.7); Neutrophils % (A) 76 %; RBC 3.98 m/uL (3.80-5.40); RDW 13.6 % (11.5-15.5); WBC 4.6 k/uL (3.8-10.6); WBC (Perox) 5.36
[2016-05-08 09:34] LABS: Anion Gap 11 mmol/L; Blood Urea Nitrogen 7 mg/dL (7-17); Calcium 7.4 mg/dL (8.4-10.2); Carbon Dioxide 25 mmol/L (22-30); Chloride 107 mmol/L (98-107); Glucose 77 mg/dL (74-99); Non-African American GFR(MDRD) >60 (>60 ml/min/1.73 sqM); Sodium 143 mmol/L (137-145)
--- NOTE | 2016-05-08 10:00 | PN ---
DATE OF SERVICE: 05/07/2016 This 85-year-old woman who was admitted with abdominal pain has got features of acute colitis. Seen and evaluated the patient along with the nurse practitioner. Patient also had UTI also and antibiotics have been recommended by Dr. Sullivan and outpatient followup. Prognosis guarded. Further recommendations to follow.
[2016-05-08] MEDS: LEVOFLOXACIN 500MG-D5W PMX 500 MG in DEXTROSE/WATER 1 100ML.BAG IVPB SCH (12:02)
[2016-05-08] MEDS: HYDROmorphone 1 MG/ML 1 ML SYRINGE IV PRN ×2 (12:06→21:05)
--- NOTE | 2016-05-08 14:01 | P.PN ---
Subjective Principal diagnosis: Diarrhea 85-year-old female admitted with severe blood-tinged diarrhea secondary to colitis possible self limiting infectious. Colonoscopy less than a year ago. Patient reports increased nausea vomiting after receiving IV Dilaudid. Still reports abdominal discomfort but improved. 3 balance tonight but nonbloody and small in quantity. Tolerating small amounts of full liquid diet. Afebrile. White count 4.6. Hemoglobin 10.7. Objective - Vital Signs Vital signs: Vital Signs Temp 97.5 F L 05/08/16 07:00 Pulse 65 05/08/16 07:00 Resp 20 05/08/16 11:08 BP 110/48 05/08/16 07:00 Pulse Ox 96 05/08/16 07:00 Intake & Output 05/07/16 05/08/16 05/08/16 18:59 06:59 18:59 Intake Total 240 Balance 240 Weight 43.318 kg Intake: Oral 240 Other: # Voids 1 2 1 # Bowel Movements 0 0 - Exam General appearance: The patient is alert, oriented, in no acute distress. HET: Head is normocephalic and atraumatic. Pupils are equal and reactive. Oropharynx is clear without lesions. Neck: Supple without lymphadenopathy. Trachea midline. Heart: S1 S2. Regular rate and rhythm. Lungs: No crackles or wheezes are heard. Abdomen: Soft, diffuse tenderness bilateral lower quadrants greater than left and right with bowel sounds. No peritoneal signs. No palpable organomegaly or masses. Extremities: Normal skin color and turgor. No cyanosis, rash, ulceration, clubbing, or edema. Radial and pedal pulses are 2/4 bilaterally. Neurological: No focal deficits. Strength and sensation are grossly intact. - Labs CBC & Chem 7: 05/08/16 08:25 05/08/16 08:23 Labs: Abnormal Lab Results - Last 24 Hours (Table) 05/08/16 05/08/16 Range/Units 08:23 08:25 Hgb 10.7 L (11.4-16.0) gm/dL Lymphocytes # 0.6 L (1.0-4.8) k/uL Calcium 7.4 L (8.4-10.2) mg/dL Microbiology - Last 24 Hours (Table) 05/06/16 14:13 Urine Culture - Final Urine,Clean Catch 05/06/16 11:57 Blood Culture - Preliminary Blood No Growth after 24 hours Assessment and Plan Plan: Impression: 1. Acute onset of blood-tinged diarrhea improved suspect self-limiting infectious colitis. Plan: 1. Will modify full liquid diet to include soup and crackers. 2. Patient was advised to hold off on IV Dilaudid and it is causing increased nausea and vomiting. Continue with oral pain medications as needed. 3. We'll continue to follow with you.
[2016-05-08] MEDS: METOCLOPRAMIDE 5 MG/ML 2 ML VIAL IVP PRN (17:12)
--- NOTE | 2016-05-08 21:48 | PN ---
DATE OF SERVICE: 05/08/2016 This 85-year-old woman was admitted with abdominal pain, possibly colitis, is being closely monitored. I have seen and evaluated the patient with the nurse practitioner. Please refer to the nurse practitioner's notes and impressions documented as scribe for further information. Further recommendations to follow.
[2016-05-09] MEDS: metroNIDAZOLE-NS PMX 500 MG in SALINE 1 100ML.BAG IVPB SCH ×2 (00:01→08:10)
[2016-05-09 00:07] VITALS: RESP 16
[2016-05-09] MEDS: SODIUM CHLORIDE 0.9% 1,000 ML IV SCH ×2 (01:19→08:09)
[2016-05-09 06:36] VITALS: BP 114/51; PULSE 71; TEMP 98.6
[2016-05-09] MEDS: PANTOPRAZOLE 40 MG/10 ML VIAL IV SCH (08:10)
[2016-05-09] MEDS: DILTIAZEM CD 240 MG CAP.ER.24H PO SCH (08:10)
[2016-05-09 08:39] LABS: Basophils % (A) 0 %; CH 26.4; CHCM 30.9; Eosinophils # (A) 0.2 k/uL (0-0.7); Eosinophils % (A) 3 %; HCT 35.1 % (34.0-46.0); HDW 2.82; Hypochromasia Moderate; Luc % (Auto) 2; Lymphocytes # (A) 0.8 k/uL (1.0-4.8); Lymphocytes % (A) 13 %; MCH 26.9 pg (25.0-35.0); MCHC 31.4 g/dL (31.0-37.0); MCV 85.8 fL (80.0-100.0); Mean Platelet Volume 6.1; Monocytes # (A) 0.3 k/uL (0-1.0); Monocytes % (A) 5 %; Neutrophils # (A) 4.6 k/uL (1.3-7.7); Neutrophils % (A) 78 %; RBC 4.09 m/uL (3.80-5.40); RDW 13.4 % (11.5-15.5); WBC 5.9 k/uL (3.8-10.6); WBC (Perox) 6.43
[2016-05-09] MEDS: METOCLOPRAMIDE 5 MG/ML 2 ML VIAL IVP PRN (09:31)
[2016-05-09 09:46] LABS: Anion Gap 9 mmol/L; Blood Urea Nitrogen 5 mg/dL (7-17); Calcium 7.6 mg/dL (8.4-10.2); Carbon Dioxide 27 mmol/L (22-30); Chloride 105 mmol/L (98-107); Glucose 74 mg/dL (74-99); Non-African American GFR(MDRD) >60 (>60 ml/min/1.73 sqM); Potassium 4.4 mmol/L (3.5-5.1); Sodium 141 mmol/L (137-145)
--- NOTE | 2016-05-09 10:37 | P.PN ---
Subjective Principal diagnosis: Diarrhea 85-year-old female admitted with severe blood-tinged diarrhea secondary to colitis possible self limiting infectious. Colonoscopy less than a year ago. Patient reports improvement with nausea vomiting; tolerating advancement of diet. Still reports abdominal discomfort but improved. Few loose stools last night but very small in size nonbloody. Hemoglobin 11.0. White count 5.9. Afebrile. Stool culture pending. Objective - Vital Signs Vital signs: Vital Signs Temp 98.6 F 05/09/16 06:35 Pulse 71 05/09/16 06:35 Resp 16 05/09/16 06:35 BP 114/51 05/09/16 06:35 Pulse Ox 92 L 05/09/16 06:35 Intake & Output 05/08/16 05/09/16 05/09/16 18:59 06:59 18:59 Intake Total 240 1000 Balance 240 1000 Intake: IV 1000 Sodium Chloride 0.9% 1, 1000 000 ml @ 125 mls/hr IV . Q8H [facility] Rx#:[id number] Oral 240 Other: # Voids 3 1 # Bowel Movements 1 1 - Exam General appearance: The patient is alert, oriented, in no acute distress. HET: Head is normocephalic and atraumatic. Pupils are equal and reactive. Oropharynx is clear without lesions. Neck: Supple without lymphadenopathy. Trachea midline. Heart: S1 S2. Regular rate and rhythm. Lungs: No crackles or wheezes are heard. Abdomen: Soft, diffuse tenderness bilateral lower quadrants greater than left and right with bowel sounds. No peritoneal signs. No palpable organomegaly or masses. Extremities: Normal skin color and turgor. No cyanosis, rash, ulceration, clubbing, or edema. Radial and pedal pulses are 2/4 bilaterally. Neurological: No focal deficits. Strength and sensation are grossly intact. - Labs CBC & Chem 7: 05/09/16 08:10 05/09/16 08:10 Labs: Abnormal Lab Results - Last 24 Hours (Table) 05/09/16 05/09/16 Range/Units 08:10 08:10 Hgb 11.0 L (11.4-16.0) gm/dL Lymphocytes # 0.8 L (1.0-4.8) k/uL BUN 5 L (7-17) mg/dL Calcium 7.6 L (8.4-10.2) mg/dL Microbiology - Last 24 Hours (Table) 05/06/16 11:57 Blood Culture - Preliminary Blood No Growth after 48 hours Assessment and Plan Plan: Impression: 1. Acute onset of blood-tinged diarrhea improved suspect self-limiting infectious colitis. Plan: 1. Agreeable for discharge. Return to office in 2-3 weeks.
[2016-05-09] MEDS: LEVOFLOXACIN 500MG-D5W PMX 500 MG in DEXTROSE/WATER 1 100ML.BAG IVPB SCH (12:39)
--- NOTE | 2016-05-10 22:23 | DS ---
DATE OF ADMISSION: 05/06/2016 DATE OF DISCHARGE: 05/09/2016 FINAL DIAGNOSES: 1. Abdominal pain with possible rectosigmoid colitis, possibly infectious or ischemic. 2. Acute urinary tract infection. 3. Hypertension. 4. Diverticulosis history. 5. Remote history of nicotine dependence. 6. History of cataracts. 7. Mild to moderate protein-calorie malnutrition; body mass index of 18.7. DISCHARGE DISPOSITION: The patient will be discharged in stable condition with guarded prognosis. HISTORY OF PRESENT ILLNESS: This 85-year-old woman with a past medical history of multiple medical problems was admitted with abdominal pain. The patient will follow with Dr. Glez in the outpatient setting for antibiotics. Dr. Sullivan saw the patient. Care was coordinated. On exam, vitals are stable. CARDIOVASCULAR SYSTEM: S1, S2 muffled. ABDOMEN: Soft. Mild diffuse discomfort. NERVOUS SYSTEM: No focal deficit. CT scan as mentioned earlier. DISCHARGE ADVICE AND MEDICATIONS: 1. Diet is soft, bland. 2. Activity limited until followup. 3. Follow up with Dr. Glez in 2 to 3 days. 4. Follow up with Dr. Sullivan as advised. 5. Cipro 500 mg p.o. b.i.d. for 10 days. 6. Diltiazem ER 240 mg daily. 7. Flagyl 500 mg p.o. b.i.d. for 10 days. 8. Ultracet 1 p.o. t.i.d. p.r.n.
[2016-05-11 05:58] LABS: Cryptosporidium parvum Not detected (Not detected); Isospora belli Not detected (Not detected); Microsporidium Not detected (Not detected); Routine Ova and Parasites Not detected
== END 2016-05-09 14:16 | disposition home or self-care (01) | DRG 392 ==
LOC: EC 20:57 → 4MS4W 05-06 00:40
PROVIDERS: ADMIT Internal Medicine; ATTEND Internal Medicine
DX: A09 Infectious gastroenteritis and colitis, unspecified (principal); E44.0 Moderate protein-calorie malnutrition; N39.0 Urinary tract infection, site not specified; Z68.1 Body mass index [BMI] 19.9 or less, adult; K92.1 Melena; I10 Essential (primary) hypertension; R42 Dizziness and giddiness; K57.90 Diverticulosis of intestine, part unspecified, without perforation or abscess without bleeding; H54.7 Unspecified visual loss; H91.90 Unspecified hearing loss, unspecified ear; R53.1 Weakness; H26.9 Unspecified cataract; Z87.891 Personal history of nicotine dependence; Z98.51 Tubal ligation status; Z80.9 Family history of malignant neoplasm, unspecified; Z79.82 Long term (current) use of aspirin; Z98.41 Cataract extraction status, right eye; Z79.891 Long term (current) use of opiate analgesic; Z79.899 Other long term (current) drug therapy; Z96.0 Presence of urogenital implants; Z87.19 Personal history of other diseases of the digestive system; Z87.448 Personal history of other diseases of urinary system
CPT/HCPCS: 36415; 74000; 74177; 80048; 80053; 80299; 81001; 82150; 82272; 82550; 82553; 83605; 83690; 84484; 85025; 86850; 86900; 86901; 87040; 87045; 87046; 87086; 87177; 87207; 87209; 89055; 96374; 99285